=== PATIENT | male | born 1990 | race Caucasian/White ===

== ENCOUNTER 2018-10-08 06:31 | Emergency (ER) | payer BC ==
[2018-10-08] MEDS ORDERED: Sodium Chloride 0.9% 1000 ML 1,000 ML IV STA (06:42)
[2018-10-08] MEDS ORDERED: Adacel Vial IM ONE ×2 (06:48→06:55)
[2018-10-08 06:52] VITALS: O2SAT 100
[2018-10-08] MEDS ORDERED: Sodium Chloride 0.9% 1000 ML 1,000 ML ONE (06:55)
--- NOTE | 2018-10-08 06:56 | ERPHSYRPT ---
- History of Present Illness Source: patient Exam Limitations: no limitations Witnessed: by friend Prior Episodes: single episode today Timing/Duration: hour(s) (1) Precipitating Factors: none Context: standing Loss of Consciousness: prolonged (minutes), other (he remembers people talking to him, but he was too tired to answer.) Charcter of event(s): collapsed <ALBINA COSTA - Last Filed: 10/08/18 07:07> <ELLEN CAR - Last Filed: 10/08/18 08:02> - History of Present Illness Time Seen by Provider: 10/08/18 06:39 Physician History: Pt was found on the ground in a parking lot with abrasions on his nose, unresponsive. He does not remember what happened, he remembers walking in a parking lot, and the next he remembered, he was surrounded by people. His friend state, he was walking in the lot, stumbling, fell twice, and did not get up. They did not report seizures, vomiting, pt denies chest pain, SOB, severe headaches, only nausea. (ALBINA COSTA) Allergies/Adverse Reactions: Penicillins Allergy (Verified 10/08/18 06:38) Home Medications: Paroxetine HCl [Paxil] 40 mg PO DAILY 10/08/18 [History] - Review of Systems Constitutional: No Symptoms Abdominal/Gastrointestinal: Nausea All Other Systems: Unable due to condition <ALBINA COSTA - Last Filed: 10/08/18 07:07> - Review of Systems Ears, Nose, & Throat: Other (abrasion on nose) Respiratory: No Symptoms Cardiac: No Symptoms Genitourinary Symptoms: No Symptoms Musculoskeletal: No Symptoms Neurological: Gait Changes, Lethargy, No Seizure Psychological: No Symptoms Endocrine: No Symptoms Hematologic/Lymphatic: No Symptoms Immunological/Allergic: No Symptoms <ELLEN CAR - Last Filed: 10/08/18 08:02> Physical Exam - Kayleigh Coma Scale Best Eye Response (Kayleigh): (4) open spontaneously Best Verbal Response (Melcroft): (5) oriented Best Motor Response (Melcroft): (6) obeys commands Melcroft Total: 15 - Physical Exam General Appearance: no apparent distress Eye Exam: bilateral eye: normal inspection, PERRL, EOMI Ears, Nose, Throat Exam: pharynx normal, other (abrasions, superficial cuts on the back of nose and chin, no swelling, deformity.) Neck Exam: normal inspection, other (in cervical collar), No JVD Respiratory: normal breath sounds, lungs clear, airway intact, No chest tenderness, No respiratory distress Cardiovascular: regular rate/rhythm, normal heart sounds, normal peripheral pulses, murmur, capillary refill <2 sec Gastrointestinal: soft, normal bowel sounds, No tenderness, No distention, No mass, No guarding, No ecchymosis, No pulsatile mass, No rebound, No organomegaly Back Exam: normal inspection, No CVA tenderness, No vertebral tenderness, No rash Extremity Exam: other (superficial small abrasions on left ulnar, dorsal wrist and left patella, no swelling, deformity or tenderness.), No calf tenderness, No hector's sign, No pedal edema Peripheral Pulses: carotid (R): 3+, carotid (L): 3+, femoral (R): 3+, femoral (L ): 3+, dorsalis-pedis (R): 3+, dorsalis-pedis (L): 3+ 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, 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, 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 Exam: normal speech, PERRL, No facial droop Motor/Sensory: no motor deficit DTR: bicep (R): 2+, bicep (L): 2+, knee (R): 2+, knee (L): 2+, ankle (R): 2+, ankle (L): 2+ Skin Exam: normal color, warm, dry, No rash, No petechiae, No cyanosis SpO2 Interpretation: normal O2 Delivery: Room Air <ALBINA COSTA - Last Filed: 10/08/18 07:07> - Nursing Vital Signs Nursing Vital Signs: Initial Vital Signs Temperature 97.6 F 10/08/18 06:39 Pulse Rate 82 10/08/18 06:39 Respiratory Rate 20 10/08/18 06:39 Blood Pressure 120/72 10/08/18 06:39 O2 Sat by Pulse Oximetry 100 10/08/18 06:39 Pain Scale Pain Intensity 8 - Course Nursing assessment & vital signs reviewed: Yes EKG Interpreted by Me: RATE (72/min), NORMAL AXIS, NORMAL INTERVALS, NORMAL QRS , NORMAL ST-T <ALBINA COSTA - Last Filed: 10/08/18 07:07> - CT Exams Head CT Interpretation: Tele-radiologist Report (no acute abnormality) Cervical Spine CT Interpretation: Tele-radiologist Report (no acute abnormality) <JOSEPELLEN - Last Filed: 10/08/18 08:02> Ordered Tests: Active Orders 24 hr Category Date Time Status EKG-ER Only STAT Care 10/08/18 06:40 Active IV Insertion STAT Care 10/08/18 06:40 Active Orthostatic Vital Signs STAT Care 10/08/18 06:40 Active Oxygen-ED Only Nasal Cannula 2 lpm Care 10/08/18 06:40 Active CERVICAL SPINE WO CONTRAST [CT] Stat Exams 10/08/18 07:33 Taken CHEST 1 VIEW (PORTABLE) Stat Exams 10/08/18 06:41 Taken HEAD WITHOUT CONTRAST [CT] Stat Exams 10/08/18 06:41 Taken ACETAMINOPHEN Stat Lab 10/08/18 06:57 Completed CBC W DIFF Stat Lab 10/08/18 06:57 Completed CK-Creatinine Phosphokinase Stat Lab 10/08/18 07:07 Completed CMP Stat Lab 10/08/18 06:57 Completed D-DIMER QUANTITATION Stat Lab 10/08/18 06:57 Completed ETHYL ALCOHOL Stat Lab 10/08/18 06:57 Completed Lactic Acid Stat Lab 10/08/18 06:41 Completed PROTIME WITH INR Stat Lab 10/08/18 06:57 Completed SALICYLATE Stat Lab 10/08/18 06:57 Completed TROPONIN Q3H Lab 10/08/18 07:15 Completed TROPONIN Q3H Lab 10/08/18 10:15 Ordered TROPONIN Q3H Lab 10/08/18 13:15 Ordered TROPONIN Q3H Lab 10/08/18 16:15 Ordered TROPONIN Q3H Lab 10/08/18 19:15 Ordered UA W/RFX UR CULTURE Stat Lab 10/08/18 06:40 Uncollected Urine Triage Profile Stat Lab 10/08/18 06:40 Uncollected Medication Summary Discontinued Medications Generic Name Dose Route Start Last Admin Trade Name Freq PRN Reason Stop Dose Admin Diphtheria/Tetanus/Acell Pertussis 0.5 ml 10/08/18 06:48 10/08/18 06:57 Adacel Vial IM 10/08/18 06:49 0.5 ml .ONCE ONE Administration Diphtheria/Tetanus/Acell Pertussis Confirm 10/08/18 06:55 Adacel Vial Administered 10/08/18 06:56 Dose 0.5 ml IM .STK-MED ONE Sodium Chloride 1,000 mls @ 999 mls/hr 10/08/18 06:42 10/08/18 06:58 Sodium Chloride 0.9% 1000 Ml IV 10/08/18 07:42 999 mls/hr .Q1H1M STA Administration Sodium Chloride Confirm 10/08/18 06:55 Sodium Chloride 0.9% 1000 Ml Administered 10/08/18 06:56 Dose 1,000 mls @ ud .ROUTE .STK-MED ONE Lab/Rad Data: Laboratory Result Diagrams 10/08/18 06:57 10/08/18 06:57 Laboratory Results 10/08/18 10/08/18 10/08/18 Range/Units 07:15 07:07 06:57 WBC (4.0-10.5) K/mm3 RBC (4.1-5.6) M/mm3 Hgb (12.5-18.0) gm/dl Hct (42-50) % MCV (78-100) fl MCH (26-32) pg MCHC (32-36) g/dl RDW (11.5-14.0) % Plt Count (150-450) K/mm3 MPV (6-9.5) fl Gran % (36.0-66.0) % Eos # (Auto) (0-0.5) Absolute Lymphs (auto) (1.0-4.6) Absolute Monos (auto) (0.0-1.3) Lymphocytes % (24.0-44.0) % Monocytes % (0.0-12.0) % Eosinophils % (0.00-5.0) % Basophils % (0.0-0.4) % Absolute Granulocytes (1.4-6.9) Basophils # (0-0.4) PT (8.83-12.87) SECONDS INR (0.8-3.0) D-Dimer (215-500) ng/mL Sodium (137-145) mmol/L Potassium (3.5-5.1) mmol/L Chloride (98-107) mmol/L Carbon Dioxide (22-30) mmol/L Anion Gap (5-15) MEQ/L BUN (9-20) mg/dL Creatinine (0.66-1.25) mg/dL Estimated GFR ML/MIN Glucose (74-106) mg/dL Lactic Acid (0.4-2.0) Calcium (8.4-10.2) mg/dL Total Bilirubin (0.2-1.3) mg/dL AST (17-59) U/L ALT (0-50) U/L Alkaline Phosphatase (38-126) U/L Creatine Kinase 146 (55-170) U/L Troponin I < 0.012 (0.000-0.034) ng/mL Serum Total Protein (6.3-8.2) g/dL Albumin (3.5-5.0) g/dL Salicylates < 1.0 L (2-20) mg/dL Acetaminophen < 10 L (10-30) ug/ml Ethyl Alcohol < 10 (0-10) mg/dL 10/08/18 10/08/18 10/08/18 Range/Units 06:57 06:57 06:57 WBC 7.4 (4.0-10.5) K/mm3 RBC 4.84 (4.1-5.6) M/mm3 Hgb 14.0 (12.5-18.0) gm/dl Hct 41.0 L (42-50) % MCV 84.7 (78-100) fl MCH 28.9 (26-32) pg MCHC 34.1 (32-36) g/dl RDW 13.2 (11.5-14.0) % Plt Count 285 (150-450) K/mm3 MPV 9.3 (6-9.5) fl Gran % 69.6 H (36.0-66.0) % Eos # (Auto) 0.21 (0-0.5) Absolute Lymphs (auto) 1.39 (1.0-4.6) Absolute Monos (auto) 0.62 (0.0-1.3) Lymphocytes % 18.7 L (24.0-44.0) % Monocytes % 8.4 (0.0-12.0) % Eosinophils % 2.8 (0.00-5.0) % Basophils % 0.5 (0.0-0.4) % Absolute Granulocytes 5.16 (1.4-6.9) Basophils # 0.04 (0-0.4) PT 13.0 H (8.83-12.87) SECONDS INR 1.12 (0.8-3.0) D-Dimer 250 (215-500) ng/mL Sodium 139 (137-145) mmol/L Potassium 4.4 (3.5-5.1) mmol/L Chloride 103 (98-107) mmol/L Carbon Dioxide 27 (22-30) mmol/L Anion Gap 13.0 (5-15) MEQ/L BUN 14 (9-20) mg/dL Creatinine 1.02 (0.66-1.25) mg/dL Estimated GFR > 60.0 ML/MIN Glucose 111 H (74-106) mg/dL Lactic Acid (0.4-2.0) Calcium 9.3 (8.4-10.2) mg/dL Total Bilirubin 0.80 (0.2-1.3) mg/dL AST 43 (17-59) U/L ALT 29 (0-50) U/L Alkaline Phosphatase 68 (38-126) U/L Creatine Kinase (55-170) U/L Troponin I (0.000-0.034) ng/mL Serum Total Protein 6.9 (6.3-8.2) g/dL Albumin 4.1 (3.5-5.0) g/dL Salicylates (2-20) mg/dL Acetaminophen (10-30) ug/ml Ethyl Alcohol (0-10) mg/dL //19 Range/Units 06:41 WBC (4.0-10.5) K/mm3 RBC (4.1-5.6) M/mm3 Hgb (12.5-18.0) gm/dl Hct (42-50) % MCV (78-100) fl MCH (26-32) pg MCHC (32-36) g/dl RDW (11.5-14.0) % Plt Count (150-450) K/mm3 MPV (6-9.5) fl Gran % (36.0-66.0) % Eos # (Auto) (0-0.5) Absolute Lymphs (auto) (1.0-4.6) Absolute Monos (auto) (0.0-1.3) Lymphocytes % (24.0-44.0) % Monocytes % (0.0-12.0) % Eosinophils % (0.00-5.0) % Basophils % (0.0-0.4) % Absolute Granulocytes (1.4-6.9) Basophils # (0-0.4) PT (8.83-12.87) SECONDS INR (0.8-3.0) D-Dimer (215-500) ng/mL Sodium (137-145) mmol/L Potassium (3.5-5.1) mmol/L Chloride (98-107) mmol/L Carbon Dioxide (22-30) mmol/L Anion Gap (5-15) MEQ/L BUN (9-20) mg/dL Creatinine (0.66-1.25) mg/dL Estimated GFR ML/MIN Glucose (74-106) mg/dL Lactic Acid 1.8 (0.4-2.0) Calcium (8.4-10.2) mg/dL Total Bilirubin (0.2-1.3) mg/dL AST (17-59) U/L ALT (0-50) U/L Alkaline Phosphatase (38-126) U/L Creatine Kinase (55-170) U/L Troponin I (0.000-0.034) ng/mL Serum Total Protein (6.3-8.2) g/dL Albumin (3.5-5.0) g/dL Salicylates (2-20) mg/dL Acetaminophen (10-30) ug/ml Ethyl Alcohol (0-10) mg/dL - Progress Progress: improved <ALBINA COSTA - Last Filed: 10/08/18 07:07> - Progress Progress: improved Counseled pt/family regarding: lab results, diagnosis, need for follow-up, rad results <ELLEN CAR - Last Filed: 10/08/18 08:02> - Progress Progress Note: 10/08/18 07:[address] Car in details, he will take over patient's care follow up on his results! (ALBINA COSTA) <ALBINA COSTA - Last Filed: 10/08/18 07:07> - Departure Departure Disposition: Home Critical Care Time: Yes Critical Care Time(excluding separately billable procedures): 30-74 minutes <ELLEN CAR - Last Filed: 10/08/18 08:02> - Departure Clinical Impression: Atypical syncope Condition: Stable Referrals: TOBY ODONNELL MD [Primary Care Provider] - Instructions: Syncope (Fainting), Vasovagal Response (DC), Syncope (Fainting) ( DC) Additional Instructions: Renato Acharya was seen on 10/08/18 n the Emergency Room. At that time you were treated for an emergent condition, during your visit Laboratory, Radiology and/or other procedures may have been ordered. It is very important that you follow-up with your Primary Care Physician within the next 24-48 hours to review your Emergency Room visit and the final results of testing that was ordered. Some test results such as Urine Cultures, Blood Cultures, and other cultures if ordered will not be finalized for 24-48 hours. If you do not have a Primary Care Provider please call the medical records department at [phone] ext [phone] to obtain a copy of your results or you may sign into our patient portal to obtain these results by visiting us @ [email or web address] and completing the following steps: 1. Click on the Patient Portal link 2. Click the Patient Self Enrollment Link to complete the enrollment form and entering your 3. Once the enrollment form is completed you will receive an email with a temporary ID and password at the email address you provided. 4. Next choose a user name and password. Your user name must be at least 4 characters long and your password must be at least 4 characters long. 5. Choose a security question from the list and provide your answer to the question. If you already have signed into the Health Portal you may access your Health Care Information 07/12 by the following steps: 1. Login to our website @ [email or web address] 2. Enter your original user name and password. FAQS The [facility] Health Portal is an online tool that contains your Lab Results, Radiology Reports, Visit History, Discharge Instructions and Health Summary Lab and Radiology Results will not be available for 72 hours on the portal. The Portal is a secure site, passwords are encryted and URLs are re-written so they cannot be copied and pasted. You and authorized family members are the only ones who can access your Portal. Also there is a timeout feature that protects your information if you leave the Portal page open. If you have technical difficulty please use the Contact Us link on the page this will allow you to submit any questions you have regarding the Portal or you may contact the Medical Record Department at [phone] ext [phone]. Discharge/Care Plan Renato Acharya was seen on 10/08/18 in the Emergency Room. The patient was counseled regarding Diagnosis,Lab results, Imaging studies, need for follow up and when to return to the Emergency Room. Prescriptions given: Discharge Note I have spoken with the patient and/or caregivers. I have explained the patient' s condition, diagnosis and treatment plan based on the information available to me at this time. I have answered the patient's and/or caregiver's questions and addressed any concerns. The patient and/or caregivers have as good understanding of the patient's diagnosis, condition and treatment plan as can be expected at this point. The vital signs have been stable. The patient's condition is stable and appropriate for discharge from the emergency department. The patient will pursue further outpatient evaluation with the primary care physician or other designated or consulting physician as outlined in the discharge instructions. The patient and/or caregivers are agreeable to this plan of care and follow-up instructions have been explained in detail. The patient and/or caregivers have received these instruction. The patient/and or caregivers are aware that any significant change in condition or worsening of symptoms should prompt an immediate return to this or the closest emergency department or call 911. Forms: Work/School Release Form
[2018-10-08 06:59] LABS: BASOPHIL % 0.5 % (0.0-0.4); Basophil (Absolute #) 0.04 (0-0.4); Eosinophil % 2.8 % (0.00-5.0); Eosinophil (Absolute #) 0.21 (0-0.5); Granulocyte Absolute (ANC) 5.16 (1.4-6.9); Granulocytes % 69.6 % (36.0-66.0); Lymphocyte (Absolute #) 1.39 (1.0-4.6); Lymphocytes % 18.7 % (24.0-44.0); Mean Cell Volume 84.7 fl (78-100); Mean Corpuscular Hemoglobin 28.9 pg (26-32); Mean Corpuscular Hgb Concent. 34.1 g/dl (32-36); Mean Platelet Volume 9.3 fl (6-9.5); Monocyte (Absolute #) 0.62 (0.0-1.3); Monocytes % 8.4 % (0.0-12.0); Platelet Count 285 K/mm3 (150-450); Red Blood Count 4.84 M/mm3 (4.1-5.6); Red Cell Distribution Width 13.2 % (11.5-14.0); White Blood Count 7.4 K/mm3 (4.0-10.5)
[2018-10-08 07:17] LABS: INR 1.12 (0.8-3.0)
[2018-10-08 07:23] LABS: ALBUMIN 4.1 g/dL (3.5-5.0); ALKALINE PHOSPHATASE 68 U/L (38-126); BLOOD UREA NITROGEN 14 mg/dL (9-20); CHLORIDE 103 mmol/L (98-107); Calcium 9.3 mg/dL (8.4-10.2); Carbon Dioxide 27 mmol/L (22-30); Creatinine 1 1.02 mg/dL (0.66-1.25); Glucose 111 mg/dL (74-106); Potassium 4.4 mmol/L (3.5-5.1); SGOT/AST 43 U/L (17-59); SGPT/ALT 29 U/L (0-50); SODIUM 139 mmol/L (137-145); Total Protein 6.9 g/dL (6.3-8.2)
[2018-10-08 07:28] LABS: ACETAMINOPHEN < 10 ug/ml (10-30); ETHYL ALCOHOL < 10 mg/dL (0-10); SALICYLATE < 1.0 mg/dL (2-20)
[2018-10-08] MEDS ORDERED: TYLENOL EXTRA STRENGTH 500 MG ONE (08:10)
[2018-10-08 08:29] VITALS: BP 113/64; PULSE 71
[2018-10-08] MEDS ORDERED: TYLENOL EXTRA STRENGTH 500 MG PO STA (12:08)
--- NOTE | 2018-10-08 20:33 | XRAY ---
Indication: Loss of consciousness. Status post fall. Multiple contiguous axial images obtained through the head without contrast. Comparison: None Normal appearing brain parenchyma, ventricles, and bony calvarium. Mild mucosal thickening of both maxillary, both ethmoid, and right frontal sinuses. Mastoid air cells are clear. Impression: Paranasal sinus disease. Remaining CT head without contrast exam is negative. Comment: Preliminary interpretation was made by [facility]. No discrepancy. CTDI 50.62
--- NOTE | 2018-10-08 20:38 | XRAY ---
Indication: Loss of consciousness. Status post fall. Comparison: None Portable chest demonstrates normal heart, lungs, and bony thorax.
--- NOTE | 2018-10-08 20:38 | XRAY ---
Indication: Loss of consciousness. Status post fall. Multiple contiguous axial images obtained through the cervical spine. Sagittal and coronal reformatted images obtained. Comparison: None Axial images negative for acute fracture, suspicious bone lesions, or spinal canal stenosis. Minimal C5-C6 endplate spurring. Sagittal and coronal reformatted images demonstrates cervical lordotic straightening, positional versus paraspinal spasm. C5-C6 disc space narrowing. No acute compression fracture, subluxation, or jumped facet. Normal appearing craniocervical junction. Visualized noncontrasted soft tissues including lung apices unremarkable. Impression: 1. Cervical lordotic straightening, positional versus paraspinal spasm. 2. Negative acute fracture/subluxation. 3. C5-C6 degenerative changes. Comment: Preliminary interpretation was made by [facility]. No critical discrepancy. CTDI 48.22
== END 2018-10-08 08:41 | disposition home or self-care (01) ==
LOC: SUPCPDRO 06:31 → EDBD 06:31 → ED 06:31
DX: R55 Syncope and collapse (principal); R53.83 Other fatigue; S00.81XA Abrasion of other part of head, initial encounter; S00.31XA Abrasion of nose, initial encounter; W19.XXXA Unspecified fall, initial encounter; Y92.481 Parking lot as the place of occurrence of the external cause
CPT/HCPCS: 70450; 72125; 80053; 80307; 82550; 83605; 84484; 85025; 85379; 85610; 90471; 93005; 96360; 99291; G0481; 36000; 36415; 71045; 90715; 96374; 99284; A9270-GY; G0480